=== PATIENT | female | born 1975 | race Caucasian/White ===

== ENCOUNTER 2024-11-10 16:32 | Emergency (ER) | payer MEDICAID ==
[~2024-11-10] VITALS: Ht 167.6 cm; Wt 75.2 kg
--- NOTE | 2024-11-10 17:18 | Physician Documentation ---
History of Present Illness ~ Chief Complaint: Vaginal Bleeding Stated Complaint: LIGHT HEADED AND DIZZINESS Time Seen by MD: 17:33 HPI This is a 49-year-old female who presents with continuous painless vaginal bleeding since October 25 of this year, patient reports feeling of fatigue, and episodes of near-syncope. Patient reports no other acute symptoms or concerns. Patient was seen at a walk-in clinic who referred her to the emergency department. No fevers, chills, nausea, or vomiting. When questioned about pads per hour, reports bleeding only with wiping after urinating. Blood sometimes old, sometimes fresh bright red. Medication Reconciliation Allergies: Coded Allergies: No Known Allergies (Unverified , 11/10/24) Scheduled Norethindrone Acetate (Norethindrone Acetate), 1 TAB PO TID Review of Systems ROS As stated above in the HPI, otherwise all systems are reviewed and negative. Physical Exam Vital Signs: Temperature: 98.6, Source: Temporal, Heart Rate: 77, Respiratory Rate: 18, BP: 139/96, Pulse Oximetry: 100, Weight: 75.200 Oxygen Flow Rate: 0 Physical Exam VITALS: Reviewed and as above. GENERAL: Alert, nontoxic appearing, no apparent distress. RESPIRATORY: No increased work of breathing, no respiratory distress, speaking in full clear sentences CHEST: Clear lungs with no distress. CV: RRR no murmur. GI: Abdomen soft, non-tender, active bowel sounds. MUSCULOSKELETAL: Full ROM of extremities. SKIN: Good color, no rashes. NEURO: A&O x4. PSYCH: Alert, appropriate, conversant, cooperative. Progress Progress Note 1820: [employer] Tech reports that pelvic u.s. is normal. Endometrium is not thickened, no masses. IUD in good position. Results/Orders Results/Orders Orders - MAYANK CORONEL NP Ultrasound Pelvis W/Orwo Dplx (11/10/24 18:02) * Iv Access / Saline Lock * (11/10/24 18:03) Normal Saline 1000ml (0.9% Sodium Chlori (11/10/24 18:05) Vital Signs 11/10/24 11/10/24 16:42 18:09 Temp 98.6 Pulse 77 Resp 18 B/P (MAP) 139/96 Pulse Ox 100 O2 Flow Rate 0 Laboratory Tests Test 11/10/24 16:15 11/10/24 16:58 Urine Specimen Description Cln catch midstream Urine Color [place] Urine Clarity Clear Urine pH 7.0 Urine Specific [place] 1.010 Urine Protein Negative Urine Glucose (UA) Negative Urine Ketones Negative Urine Occult Blood Small Urine Nitrite Negative Urine Bilirubin Negative Urine Urobilinogen 0.2 Urine Leukocyte Esterase Small H Urine RBC 3-10 Urine WBC 5-10 H Urine Squamous Epithelial Cells Moderate Urine Transitional Epithelial Cells Few Urine Renal Cells Few Urine Bacteria Few Urine Culture Indicated Indicated Volume Urine Centrifuged 10 ml Urine HCG, Qualitative Negative Urine Comment White Blood Count 5.4 Red Blood Count 4.56 Hemoglobin 14.8 Hematocrit 42.2 Mean Corpuscular Volume 92.4 Mean Corpuscular Hemoglobin 32.4 H Mean Corpuscular Hemoglobin Concent 35.0 Red Cell Distribution Width 13.3 Platelet Count 256 Mean Platelet Volume 7.8 Neutrophils (%) (Auto) 60.0 Lymphocytes (%) (Auto) 30.5 Monocytes (%) (Auto) 7.9 Eosinophils (%) (Auto) 1.1 Basophils (%) (Auto) 0.5 Neutrophils # (Auto) 3.3 Lymphocytes # (Auto) 1.7 Monocytes # (Auto) 0.4 Eosinophils # (Auto) 0.1 Basophils # (Auto) 0.0 CBC Comment Sodium Level 135 Potassium Level 4.1 Chloride Level 99 Carbon Dioxide Level 29.1 Anion Gap 7 L Blood Urea Nitrogen 20 H Creatinine 0.86 Estimated GFR/1.73 m2 71 BUN/Creatinine Ratio 23.3 H Glucose Level 88 Calcium Level 9.2 Total Bilirubin 0.6 Aspartate Amino Transf (AST/SGOT) 14 Alanine Aminotransferase (ALT/SGPT) 24 Alkaline Phosphatase 39 L Total Protein 7.5 Albumin 4.3 Globulin 3.2 Albumin/Globulin Ratio 1.3 Chemistry Comments Medical Decision Making Findings MSE performed in triage and patient returned to ED lobby by nursing staff to await available ED room Additional Comment 49 yr old female with Mirena IUD in place presents due to vaginal bleeding without pain since October 25. Main concern is dizziness. Hemoglobin stable. UA normal with no evidence of infection. Will send home on norethindrone with instructions to followup with PCP and obtain claim investigator referral. Hydrated with IV NS x one bag as bolus. Is to return if worse. Departure Time of Disposition: 18:27 Disposition: 01 HOME / SELF CARE / HOMELESS Impression: Primary Impression: Vaginal bleeding Additional Impression: Dizzy Condition: Stable Discharge Instructions: Dizziness Additional Instructions: Take the norethindrone 3x daily as prescribed x one week to slow and hopefully stop vaginal bleeding. See your primary care provider soon and request a referral to gynecology. Return if worse. Referrals: NO PRIMARY CARE PROVIDER (PCP) Prescriptions Norethindrone Acetate (Norethindrone Acetate) 5 Mg Tablet 1 TAB PO TID for 7 Days, #21 TAB 0 Refills Prov: MAYANK CORONEL NP 11/10/24 Education Educated: Patient, Family Educated regarding: diagnosis, treatment, prognosis, need for follow up Signature Scribe Signature: x Attestation: The note accurately reflects work and decisions made by me.Mayank William NP 11/10/24 18:10 ALINA FISCHER Nov 10, 2024 17:18 MAYANK CORONEL NP Nov 10, 2024 18:07
[2024-11-10 17:41] LABS: MEAN PLATELET VOLUME 7.8 FL (7.4-10.4); RED CELL DISTRIBUTION WIDTH 13.3 % (11.5-14.5)
[2024-11-10 17:48] LABS: LEUKOCYTE ESTERASE ,URINE SMALL (Neg); NITRITES, URINE NEGATIVE (Neg); OCCULT BLOOD,URINE SMALL (Neg); URINE HCG NEGATIVE (NEG)
[2024-11-10 17:56] LABS: CREATININE 0.86 MG/DL (0.40-0.90); TOTAL CARBON DIOXIDE 29.1 MMOL/L (24-32); eCRCL 76 ML/MIN; eGFR 71 ML/MIN
[2024-11-10 18:12] LABS: UA COLLECTION TYPE CLN CATCH MIDSTREAM
[2024-11-10] MEDS ORDERED: NORE5TAB PO (18:12)
[2024-11-10 18:17] LABS: RENAL CELLS, URINE FEW /HPF; SQUAMOUS EPITHELIAL CELL,UR MODERATE /LPF (FEW)
[2024-11-10] MEDS: normal saline 1000ml 1,000 ML IV ONE (18:36)
[2024-11-10] MEDS: ketorolac trometh 15mg/ml vial 15 MG/ML ML IV ONE (18:45)
--- NOTE | 2024-11-10 18:55 | RADIOLOGY REPORT ---
Technique: Real-time ultrasound images through the pelvis using a transabdominal transducer. Indication: persistent vag bleeding Comparison: None Findings: The uterus measures 8.6 cm. The endometrial stripe measures 4 mm. There are no focal masses. There is no abnormal flow in the endometrium. Intrauterine device seen extending to the fundal region Right ovary measures 2.4 x 2.3 x 2.5 cm. Normal flow on color doppler images. No focal masses are gabriel ntified. Left ovary measures 2.2 x 1.7 x 1.9 cm. Normal flow on color doppler images. No focal masses are gabriel ntified. There is no significant free fluid in the pelvis. Impression: Intrauterine device extending to the fundal region. Endometrial thickness within normal limits, measuring approximately 4 mm.
[2024-11-10 19:39] VITALS: BP 144/102; PULSE 74; RESP 12; TEMP 98.6; O2SAT 99
== END 2024-11-10 19:42 | disposition home or self-care (01) ==
LOC: ER 16:34
DX: N93.9 Abnormal uterine and vaginal bleeding, unspecified (principal); R42 Dizziness and giddiness; Z79.899 Other long term (current) drug therapy
CPT/HCPCS: 36415; 76856; 80053; 81001; 81025; 85025; 87088; 96361; 96374; 99285; J1885; J7030

== ENCOUNTER 2025-02-24 09:26 | Emergency (ER) | payer OTHER, MEDICAID ==
[~2025-02-24] VITALS: Ht 167.6 cm; Wt 76.9 kg
[~2025-02-24 09:26] MED LIST: NORE5TAB PO
[2025-02-24 09:36] VITALS: TEMP 98.7
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
[2025-02-24] MEDS ORDERED: ketorolac trometh 15mg/ml vial 15 MG/ML ML IM ONE (10:45)
[2025-02-24] MEDS: ketorolac trometh 30MG/ML vial 30 MG/ML VIAL IM ONE (11:00)
[2025-02-24] MEDS ORDERED: CYCL-1 PO (11:53)
[2025-02-24 12:04] VITALS: BP 137/104; PULSE 66; RESP 16; O2SAT 96
== END 2025-02-24 12:05 | disposition home or self-care (01) ==
LOC: ER 09:27
DX: M54.2 Cervicalgia (principal); M25.512 Pain in left shoulder; Z79.899 Other long term (current) drug therapy
CPT/HCPCS: 72040; 96372; 99284; J1885; J2919